=== PATIENT | female | born 1960 | race Caucasian/White ===

== ENCOUNTER → 2017-12-01 | Outpatient (CLI) | payer BC ==
[~2017-12-01] VITALS: Ht 167.6 cm; Wt 78.0 kg
[~2017-12-01] MED LIST: ALL DAY ALLERGY10 M3 PO; ATORVASTATIN CA20 MG PO; FAMOTIDINE10 M1 PO; PHRENILIN FORT1 EAC1 PO
== END | disposition home or self-care (01) ==
LOC: AMB 11-24 11:00
DX: Z12.11 Encounter for screening for malignant neoplasm of colon (principal); D12.2 Benign neoplasm of ascending colon; K63.5 Polyp of colon; K22.10 Ulcer of esophagus without bleeding; K21.9 Gastro-esophageal reflux disease without esophagitis; Z86.19 Personal history of other infectious and parasitic diseases; F17.200 Nicotine dependence, unspecified, uncomplicated; E78.5 Hyperlipidemia, unspecified; R73.09 Other abnormal glucose; E66.3 Overweight; Z68.28 Body mass index [BMI] 28.0-28.9, adult; Z80.3 Family history of malignant neoplasm of breast; Z82.49 Family history of ischemic heart disease and other diseases of the circulatory system; Z82.5 Family history of asthma and other chronic lower respiratory diseases; Z81.1 Family history of alcohol abuse and dependence
CPT/HCPCS: 88305